=== PATIENT | male | born 1970 | race African-American/Black ===

== ENCOUNTER 2019-02-03 12:34 | Emergency (ER) | payer OTHER ==
[~2019-02-03] VITALS: Ht 182.9 cm; Wt 111.1 kg
[2019-02-03] MEDS ORDERED: IV NORMAL SALINE 1000ML BAG 1,000 ML IV ONE (13:00)
[2019-02-03 13:09] LABS: BASO % 1 % (0-3); EOS # 0.2 x10^3/uL (0.0-0.7); EOS % 4 % (0-3); HEMATOCRIT 38.4 % (39.0-53.0); HEMOGLOBIN 12.3 g/dL (13.0-17.5); LYMPH % 20 % (24-48); MEAN CORPUSCULAR HEMOGLOBIN 24 pg (25-35); MEAN CORPUSCULAR HGB CONC 32 g/dL (31-37); MEAN CORPUSCULAR VOLUME 76 fL (79-100); MONO # 0.4 x10^3/uL (0.0-1.1); MONO % 7 % (0-9); NEUT # 3.6 x10^3uL (1.8-7.7); NEUT % 69 % (31-73); PLATELET COUNT 209 x10^3/uL (140-400); RED BLOOD COUNT 5.05 x10^6/uL (4.30-5.70); RED CELL DISTRIBUTION WIDTH 17.3 % (11.5-14.5); WHITE BLOOD COUNT 5.2 x10^3/uL (4.0-11.0)
--- NOTE | 2019-02-03 13:14 | EKG ---
[facility] [address] [place] [address] Test Date: 2019-02-03 Test Time: 12:42:01 Pat Name: MARICRUZ SEVILLA Department: Room: Gender: M46 M58 Armor Crewman: : 1970 Requested By: BEATRICE RUBIO Order Number: [id number] Reading MD: Kimo Hernadez Measurements Intervals [place] Rate: 66 P: 34 DE: 184 QRS: 11 QRSD: 74 T: 72 QT: 344 QTc: 362 Interpretive Statements SINUS RHYTHM T ABNORMALITY IN HIGH LATERAL LEADS Electronically Signed On 02-26-2019 12:05:11 CDT by Kimo Hernadez
[2019-02-03] MEDS ORDERED: PROPOFOL 0 ML IV ONE ×3 (13:16→13:58)
[2019-02-03] MEDS ORDERED: LIDOCAINE 2% PF 5 ML VIAL. ONE (13:16)
[2019-02-03 13:39] LABS: CALCIUM 8.8 mg/dL (8.5-10.1); GFR 95.7; POTASSIUM 3.6 mmol/L (3.5-5.1)
--- NOTE | 2019-02-03 13:43 | RAD ---
Single view chest dated 02/03/2019: No comparison available. Clinical Indication: Chest tightness, dizziness and blurred vision. Presyncope.. Findings: Single upright portable exam of the chest was performed. Heart size and mediastinal contours are within normal limits given technique. The lungs are clear without evidence of focal consolidation. Vascular interstitium is within normal limits. Impression:: No acute radiographic abnormality. Electronically signed by: Fernandez Lopez MD (02/03/2019 1:40 PM) [facility]
[2019-02-03] MEDS ORDERED: fentaNYL PF VIAL 100 MCG/2 ML VIAL ONE (13:44)
[2019-02-03] MEDS ORDERED: PHENYLEPHRINE in 0.9% NACL PF 1 MG/10 ML SYRINGE. IV ONE (13:44)
[2019-02-03 13:47] LABS: ALBUMIN 3.4 g/dL (3.4-5.0); ALBUMIN/GLOBULIN RATIO 1.1 (1.0-1.7); MAGNESIUM 1.8 mg/dL (1.8-2.4); TOTAL BILIRUBIN 0.5 mg/dL (0.2-1.0); TOTAL PROTEIN 6.6 g/dL (6.4-8.2)
[2019-02-03 14:09] LABS: BARBITURATES NEG (NEG); BENZODIAZEPINES NEG (NEG); CANNABINOIDS NEG (NEG); COCAINE NEG (NEG); METHADONE NEG (NEG); OPIATES NEG (NEG); PHENCYCLIDINE NEG (NEG)
[2019-02-03 14:11] LABS: AMPHETAMINE/METHAMPHETAMINE NEG (NEG)
[2019-02-03 14:25] VITALS: BP 137/89
--- NOTE | 2019-02-03 15:01 | PHYS DOC ---
Past Medical History Past Medical History: High Cholesterol, Hypertension, Sciatica Additional Past Medical Histor: MS Additional Past Surgical Histo: cardiac stents Alcohol Use: Occasionally Drug Use: None Adult General Chief Complaint Chief Complaint: CHEST PAIN HPI HPI Patient is a 48 year old male with history of hypertension who presents to the ED today complaining of dizziness, patient states he went to donate blood today. He does this every quadrant. He states went back to his job, he became dizzy and lightheaded. Denies passing out. He states he did not have any sufficient meal prior to blood donation or after. He only had oatmeal. Review of Systems Review of Systems Constitutional: Denies fever or chills [] Eyes: Denies change in visual acuity, redness, or eye pain [] HENT: Denies nasal congestion or sore throat [] Respiratory: Denies cough or shortness of breath [] Cardiovascular: Reports chest tightness. No additional information not addressed in HPI [] GI: Denies abdominal pain, nausea, vomiting, bloody stools or diarrhea [] : Denies dysuria or hematuria [] Musculoskeletal: Denies back pain or joint pain [] Integument: Denies rash or skin lesions [] Neurologic: Reports dizziness. Denies headache, focal weakness or sensory changes [] All other systems were reviewed and found to be within normal limits, except as documented in this note. Current Medications Current Medications Current Medications Medications (Trade) Dose Ordered Sig/Leilani Start Time Stop Time Status Last Admin Dose Admin Fentanyl Citrate (Fentanyl 2ml Vial) 100 mcg STK-MED ONCE 02/03/19 13:44 02/03/19 13:45 DC Lidocaine HCl (Lidocaine Pf 2% Vial) 5 ml STK-MED ONCE 02/03/19 13:16 02/03/19 13:17 DC Phenylephrine HCl (PHENYLEPHRINE in 0.9% NACL PF) 1 mg STK-MED ONCE 02/03/19 13:44 02/03/19 13:45 DC Propofol 0 ml @ As Directed STK-MED ONCE 02/03/19 13:58 02/03/19 13:59 DC Sodium Chloride 1,000 ml @ 1,000 mls/hr 1X ONCE 02/03/19 13:00 02/03/19 13:59 DC 02/03/19 13:00 1,000 MLS/HR Allergies Allergies Allergies Coded Allergies Type Severity Reaction Last Updated Verified No Known Drug Allergies 02/03/19 No Physical Exam Physical Exam Constitutional: Well developed, well nourished, no acute distress, non-toxic appearance. [] HENT: Normocephalic, atraumatic, bilateral external ears normal, oropharynx moist, no oral exudates, nose normal. [] Eyes: PERRLA, EOMI, conjunctiva normal, no discharge. [] Neck: Normal range of motion, no tenderness, supple, no stridor. [] Cardiovascular:Heart rate regular rhythm, no murmur [] Lungs & Thorax: Bilateral breath sounds clear to auscultation [] Abdomen: Bowel sounds normal, soft, no tenderness, no masses, no pulsatile masses. [] Skin: Warm, dry, no erythema, no rash. [] Back: No tenderness, no CVA tenderness. [] Extremities: No tenderness, no cyanosis, no clubbing, ROM intact, no edema. [] Neurologic: Alert and oriented X 3, normal motor function, normal sensory function, no focal deficits noted. [] Psychologic: Affect normal, judgement normal, mood normal. [] Current Patient Data Vital Signs Vital Signs Date Time Temp Pulse Resp B/P (MAP) Pulse Ox O2 Delivery O2 Flow Rate FiO2 02/03/19 12:35 98.9 68 18 135/73 (93) 96 Room Air 98.9 Lab Values Laboratory Tests Test 02/03/19 12:50 02/03/19 13:44 White Blood Count 5.2 x10^3/uL (4.0-11.0) Red Blood Count 5.05 x10^6/uL (4.30-5.70) Hemoglobin 12.3 g/dL (13.0-17.5) L Hematocrit 38.4 % (39.0-53.0) L Mean Corpuscular Volume 76 fL (79-100) L Mean Corpuscular Hemoglobin 24 pg (25-35) L Mean Corpuscular Hemoglobin Concent 32 g/dL (31-37) Red Cell Distribution Width 17.3 % (11.5-14.5) H Platelet Count 209 x10^3/uL (140-400) Neutrophils (%) (Auto) 69 % (31-73) Lymphocytes (%) (Auto) 20 % (24-48) L Monocytes (%) (Auto) 7 % (0-9) Eosinophils (%) (Auto) 4 % (0-3) H Basophils (%) (Auto) 1 % (0-3) Neutrophils # (Auto) 3.6 x10^3uL (1.8-7.7) Lymphocytes # (Auto) 1.0 x10^3/uL (1.0-4.8) Monocytes # (Auto) 0.4 x10^3/uL (0.0-1.1) Eosinophils # (Auto) 0.2 x10^3/uL (0.0-0.7) Basophils # (Auto) 0.0 x10^3/uL (0.0-0.2) Prothrombin Time 13.0 SEC (11.7-14.0) Prothrombin Time INR 1.0 (0.8-1.1) Sodium Level 137 mmol/L (136-145) Potassium Level 3.6 mmol/L (3.5-5.1) Chloride Level 102 mmol/L (98-107) Carbon Dioxide Level 27 mmol/L (21-32) Anion Gap 8 (6-14) Blood Urea Nitrogen 9 mg/dL (8-26) Creatinine 1.0 mg/dL (0.7-1.3) Estimated GFR (Cockcroft-Gault) 95.7 BUN/Creatinine Ratio 9 (6-20) Glucose Level 168 mg/dL (70-99) H Calcium Level 8.8 mg/dL (8.5-10.1) Magnesium Level 1.8 mg/dL (1.8-2.4) Total Bilirubin 0.5 mg/dL (0.2-1.0) Aspartate Amino Transferase (AST) 22 U/L (15-37) Alanine Aminotransferase (ALT) 28 U/L (16-63) Alkaline Phosphatase 61 U/L (46-116) Creatine Kinase 141 U/L (39-308) Creatine Kinase MB (Mass) 0.8 ng/mL (0.0-3.6) Creatine Kinase MB Relative Index 0.6 % (0-4) Troponin I Quantitative < 0.017 ng/mL (0.000-0.055) CD-Evu-M-Type Natriuretic Peptide 5 pg/mL (0-124) Total Protein 6.6 g/dL (6.4-8.2) Albumin 3.4 g/dL (3.4-5.0) Albumin/Globulin Ratio 1.1 (1.0-1.7) Lipase 71 U/L (73-393) L Thyroid Stimulating Hormone (TSH) 0.929 uIU/mL (0.358-3.74) Urine Opiates Screen Neg (NEG) Urine Methadone Screen Neg (NEG) Urine Barbiturates Neg (NEG) Urine Phencyclidine Screen Neg (NEG) Urine Amphetamine/Methamphetamine Neg (NEG) Urine Benzodiazepines Screen Neg (NEG) Urine Cocaine Screen Neg (NEG) Urine Cannabinoids Screen Neg (NEG) Urine Ethyl Alcohol Neg (NEG) Laboratory Tests 02/03/19 12:50 Laboratory Tests 02/03/19 12:50 EKG EKG 12:[address] Pérez sinus rhythm HR 66 no STEMI[] Radiology/Procedures Radiology/Procedures []PROCEDURE: PORTABLE CHEST 1V Single view chest dated 02/03/2019: No comparison available. Clinical Indication: Chest tightness, dizziness and blurred vision. Presyncope.. Findings: Single upright portable exam of the chest was performed. Heart size and mediastinal contours are within normal limits given technique. The lungs are clear without evidence of focal consolidation. Vascular interstitium is within normal limits. Impression:: No acute radiographic abnormality. Electronically signed by: Fernandez Lopez MD (02/03/2019 1:40 PM) [facility] DICTATED and SIGNED BY: FERNANDEZ LOPEZ MD DATE: 02/03/19 1340 Course & Med Decision Making Course & Med Decision Making Pertinent Labs and Imaging studies reviewed. (See chart for details) This is a 48-year-old male patient who presents to the ED today from a blood donation center, patient donated blood this morning, went back to the office, became dizzy and lightheaded and had chest tightness. On arrival to the ED temperature was 98.9, heart rate 68 O2 sats 96% on room air, respiration 18 blood pressure 135/73. EKG was negative, chest x-ray is negative, troponin is normal, hemoglobin 12.3 hematocrit 38.4. Results given to patient. Also given 1 L of fluid. Feeling better. Up ambulating in no distress. Discharged to home. Advised not to give blood until his hemoglobin level returns to normal. Recommended high protein diet/high iron diet. He states is already on iron tablets. Dragon Disclaimer Aisha Disclaimer This electronic medical record was generated, in whole or in part, using a voice recognition dictation system. Departure Departure Impression: Primary Impression: Light-headedness Additional Impression: Anemia Disposition: 01 HOME, SELF-CARE Condition: STABLE Referrals: UNKNOWN PCP NAME (PCP) follow up with your doctor in 1 week Patient Instructions: Anemia, Nonspecific-Brief Additional Instructions: You were evaluated in the emergency room for symptoms related with blood donation. Please increase your iron dietary intake. Continue taking your iron tablets. Follow-up with your doctor in the next 1-2 weeks. Come back to the ED at any point symptoms worsen. Problem Qualifiers Additional Impression: Anemia Anemia type: unspecified type Qualified Codes: D64.9 - Anemia, unspecified BEATRICE RUBIO APRN February 03, 2019 15:01
== END 2019-02-03 15:15 | disposition home or self-care (01) ==
LOC: ER 12:34
DX: R42 Dizziness and giddiness (principal); D64.9 Anemia, unspecified; R07.89 Other chest pain; I10 Essential (primary) hypertension; E78.00 Pure hypercholesterolemia, unspecified; Z95.5 Presence of coronary angioplasty implant and graft
CPT/HCPCS: 36415; 71045; 80053; 80307; 82553; 83690; 83735; 83880; 84443; 84484; 85025; 85610; 93005; 96360; 99285; J7030; J2001; J2370; J2704; J3010

== ENCOUNTER 2019-08-11 22:26 | Emergency (ER) | payer OTHER ==
[~2019-08-11] VITALS: Ht 182.9 cm; Wt 111.1 kg
[2019-08-11 22:50] VITALS: BP 136/84
[2019-08-12] MEDS ORDERED: HYDR-2761 PO (00:01)
--- NOTE | 2019-08-12 00:02 | PHYS DOC ---
Past Medical History Past Medical History: CAD, High Cholesterol, Hypertension, Sciatica Additional Past Medical Histor: MS (WINIFRED BELL APRN) Past Surgical History: Angioplasty Additional Past Surgical Histo: cardiac stents (WINIFRED BELL APRN) Alcohol Use: None Drug Use: None (WINIFRED BELL APRN) Attending Signature I have participated in the care of this patient and I have reviewed and agree with all pertinent clinical information above including history, exam, and recommendations. (NANO COLEY MD) Adult General Chief Complaint Chief Complaint: ANKLE PROBLEM HPI HPI Patient is a 49 year old AA male who presents to the emergency department with complaints of lateral right ankle pain after twisting his ankle while going up some steps at home today. Patient states injury happened at approximately 8 PM. He currently rates his pain a 1 out of 10 on pain scale, he states that the pain increases with weightbearing and movement. Patient states that he heard an audible pop when the injury occurred and since then has felt something clicking within his ankle. Patient denies any head, neck, or back pain after the fall. All other ROS is neg unless otherwise noted in HPI. (WINIFRED BELL APRN) Review of Systems Review of Systems See Above (WINIFRED BELL APRN) Allergies Allergies Allergies Coded Allergies Type Severity Reaction Last Updated Verified No Known Drug Allergies 02/03/19 No (NANO COLEY MD) Physical Exam Physical Exam See Above Constitutional: Well developed, well nourished, no acute distress, non-toxic appearance. [] HENT: Normocephalic, atraumatic, bilateral external ears normal, nose normal. [] Eyes: PERRLA, EOMI, conjunctiva normal, no discharge. [] Neck: Normal range of motion, no stridor. [] Cardiovascular:Heart rate regular rhythm Lungs & Thorax: Respirations even and unlabored, no retractions, no respiratory distress Skin: Warm, dry, no erythema, no rash. [] Back: No tenderness Extremities: Lateral left ankle tenderness to palpation with 2+ edema, no ob vious deformity, no crepitus, no cyanosis, ROM intact Neurologic: Alert and oriented X 3, no focal deficits noted. [] Psychologic: Affect normal, judgement normal, mood normal. [] (WINIFRED BELL APRN) Current Patient Data Vital Signs Vital Signs Date Time Temp Pulse Resp B/P (MAP) Pulse Ox O2 Delivery O2 Flow Rate FiO2 08/11/19 22:50 97.9 99 20 136/84 (101) 97 Room Air 97.9 (NANO COLEY MD) EKG EKG [] (WINIFRED BELL APRN) Radiology/Procedures Radiology/Procedures PROCEDURE: ANKLE RIGHT 3V Indication: Right ankle pain and swelling TECHNIQUE:w 3 views of the right ankle COMPARISON: None Findings/ impression: Oblique nondisplaced fracture is seen through the distal fibula with extension to the ankle mortise. Ankle mortise is not widened. Significant soft tissue edema is seen overlying lateral malleolus.[] (WINIFRED BELL APRN) Course & Med Decision Making Course & Med Decision Making Pertinent Labs and Imaging studies reviewed. (See chart for details) [] (WINIFRED BELL APRN) Dragon Disclaimer Dragon Disclaimer This electronic medical record was generated, in whole or in part, using a voice recognition dictation system. (WINIFRED BELL APRN) Departure Departure Impression: Primary Impression: Lateral malleolar fracture Disposition: 01 HOME, SELF-CARE Condition: STABLE Referrals: MINH MERCEDES MD Patient Instructions: Ankle Fracture, [id number] Additional Instructions: Fill prescription(s) and use as directed. Recommend application of ice, elevation, and rest of affected extremity. Wear the splint that was placed and use the crutches provided until follow up appointment with , call in the morning to schedule your follow up. Return to the ER if your symptoms worsen. Scripts Hydrocodone Bit/Acetaminophen (HYDROCODONE-APAP 5-325 ) 1 Tab Tablet 1 TAB PO PRN Q6HRS PRN for PAIN for 3 Days, #12 TAB 0 Refills Prov: WINIFRED BELL APRN 08/12/19 Splinting Splinting : Location: right ankle Hand-Made Type: orthoglass (stirrup) Pre-Proc Neuro Vasc Exam: normal Post-Proc Neuro Vasc Exam: normal, unchanged from pre-exam Progress A stirrup ankle splint using 3 inch Ortho-Glass and heavy padding to the ankle was placed by myself and [facility] Barbara. A splint was secured to the extremity using 3- 3 inch yanira wraps and 1- 4 inch yanira wrap. The patient was also provided with crutches and crutch gait instructions at this time. (WINIFRED BELL APRN) Problem Qualifiers Primary Impression: Lateral malleolar fracture Encounter type: initial encounter Fracture type: closed Fracture alignment: displaced Laterality: right Qualified Codes: S82.61XA - Disp laced fracture of lateral malleolus of right fibula, initial encounter for closed fracture WINIFRED BELL APRN Aug 12, 2019 00:01 NANO COLEY MD Aug 12, 2019 18:14
--- NOTE | 2019-08-12 00:16 | RAD ---
Indication: Right ankle pain and swelling TECHNIQUE:w 3 views of the right ankle COMPARISON: None Findings/ impression: Oblique nondisplaced fracture is seen through the distal fibula with extension to the ankle mortise. Ankle mortise is not widened. Significant soft tissue edema is seen overlying lateral malleolus. Electronically signed by: Serjio Noe DO (08/12/2019 12:13 AM) [facility]
== END 2019-08-12 00:14 | disposition home or self-care (01) ==
LOC: ER 22:26
DX: S82.61XA Displaced fracture of lateral malleolus of right fibula, initial encounter for closed fracture (principal); E78.00 Pure hypercholesterolemia, unspecified; I10 Essential (primary) hypertension; I25.10 Atherosclerotic heart disease of native coronary artery without angina pectoris; Z95.5 Presence of coronary angioplasty implant and graft; X50.9XXA Other and unspecified overexertion or strenuous movements or postures, initial encounter; Y93.89 Activity, other specified; Y92.89 Other specified places as the place of occurrence of the external cause; Y99.9 Unspecified external cause status
CPT/HCPCS: 29515; 73610; 99284-25

== ENCOUNTER 2020-11-01 14:01 | Emergency (ER) | payer OTHER ==
[~2020-11-01] VITALS: Ht 180.3 cm; Wt 90.0 kg
[~2020-11-01 14:01] MED LIST: HYDR-2761 PO
[2020-11-01 14:35] VITALS: BP 152/84
[2020-11-01] MEDS ORDERED: ORPHENADRINE CITRATE 60 MG/2 ML VIAL. IM ONE (15:00)
[2020-11-01] MEDS ORDERED: CYCL10TA2 PO (15:31)
--- NOTE | 2020-11-01 15:31 | PHYS DOC ---
Past Medical History Past Medical History: Hypertension, Sciatica Past Surgical History: Other Smoking Status: Never Smoker Alcohol Use: None General Adult EDM: Chief Complaint: LOWER EXT PAIN HPI: HPI: Patient is a 50 year old male with a history of low back pain presented to ER due to muscle spasm in his back and buttock area. Patient has low back pain for a while, he was evaluated by his family physician, had MRI done, show some disc problem, patient is scheduled to see a pain doctor on the of this month for an epidural shot. He is currently on Neurontin for pain. Patient said for the last few day he had muscle spasm in his low back and buttock area. Patient called his doctor to see if they can give him some muscle relaxer but they told to come to ER here. Patient denies any bowel or bladder incontinence. Patient denies any abdominal pain, no nausea vomiting. Patient denies any weakness or numbness in his lower extremity. Review of Systems: Review of Systems: Constitutional: Denies fever or chills. [] Eyes: Denies change in visual acuity. [] HENT: Denies nasal congestion or sore throat. [] Respiratory: Denies cough or shortness of breath. [] Cardiovascular: Denies chest pain or edema. [] GI: Denies abdominal pain, nausea, vomiting, bloody stools or diarrhea. [] : Denies dysuria. [] Musculoskeletal: Denies back pain or joint pain. Positive for low back spasm and buttock muscle spasm Integument: Denies rash. [] Neurologic: Denies headache, focal weakness or sensory changes. [] Endocrine: Denies polyuria or polydipsia. [] Lymphatic: Denies swollen glands. [] Psychiatric: Denies depression or anxiety. [] Heart Score: Risk Factors: Risk Factors: DM, Current or recent (<one month) smoker, HTN, HLP, family history of CAD, obesity. Risk Scores: Score 0 - 3: 2.5% MACE over next 6 weeks - Discharge Home Score 4 - 6: 20.3% MACE over next 6 weeks - Admit for Clinical Observation Score 7 - 10: 72.7% MACE over next 6 weeks - Early Invasive Strategies Current Medications: Current Medications Medications (Trade) Dose Ordered Sig/Leilani Start Time Stop Time Status Last Admin Dose Admin Orphenadrine Citrate (Norflex) 60 mg 1X ONCE 11/01/20 15:00 11/01/20 15:13 DC Allergies: Allergies: Allergies Coded Allergies Type Severity Reaction Last Updated Verified No Known Drug Allergies 11/01/20 No Physical Exam: PE: Constitutional: Well developed, well nourished, no acute distress, non-toxic appearance. [] HENT: Normocephalic, atraumatic, bilateral external ears normal, oropharynx moist, no oral exudates, nose normal. [] Eyes: PERRLA, EOMI, conjunctiva normal, no discharge. [] Neck: Normal range of motion, no tenderness, supple, no stridor. [] Cardiovascular:Heart rate regular rhythm, no murmur [] Lungs & Thorax: Bilateral breath sounds clear to auscultation [] Abdomen: Bowel sounds normal, soft, no tenderness, no masses, no pulsatile masses. [] Skin: Warm, dry, no erythema, no rash. [] Back: No tenderness, no CVA tenderness. [] Extremities: No tenderness, no cyanosis, no clubbing, ROM intact, no edema. [] Neurologic: Alert and oriented X 3, normal motor function, normal sensory function, no focal deficits noted. Patient had good bilateral patellar reflexes Psychologic: Affect normal, judgement normal, mood normal. [] Current Patient Data: Vital Signs: Vital Signs Date Time Temp Pulse Resp B/P (MAP) Pulse Ox O2 Delivery O2 Flow Rate FiO2 11/01/20 14:35 98.2 74 18 152/84 (106) 98 Room Air 98.2 EKG: EKG: [] Radiology/Procedures: Radiology/Procedures: [] Course & Med Decision Making: Course & Med Decision Making Pertinent Labs and Imaging studies reviewed. (See chart for details) [] Dragon Disclaimer: Psykosoft Disclaimer: This electronic medical record was generated, in whole or in part, using a voice recognition dictation system. Departure Departure Impression: Primary Impression: Sciatica Additional Impression: Muscle spasm of back Disposition: 01 DC HOME SELF CARE/HOMELESS Condition: STABLE Referrals: ORQUIDEA ELLISON MD (PCP) Follow up with your doctor as scheduled Patient Instructions: Sciatica Additional Instructions: Thank you for visiting our Emergency Department. We appreciate you trusting us with your care. If any additional problems come up don't hesitate to return to visit us. Please follow up with your primary care provider so they can plan additional care if needed and know about the problem that you had. If symptoms worsen come back to the Emergency Department. Any concerning symptoms that start such as chest pain, shortness of air, weakness or numbness on one side of the body, running high fevers or any other concerning symptoms return to the ER. Scripts Cyclobenzaprine Hcl (CYCLOBENZAPRINE HCL) 10 Mg Tablet 1 TAB PO TID PRN for MUSCLE SPASMS, #21 TAB Prov: JERAD BRITO DO 11/01/20 JERAD BRITO DO Nov 01, 2020 15:31
== END 2020-11-01 16:00 | disposition home or self-care (01) ==
LOC: ER 14:01 → MERGE 14:01 → ER 16:00
DX: M54.40 Lumbago with sciatica, unspecified side (principal); M62.838 Other muscle spasm; I10 Essential (primary) hypertension
CPT/HCPCS: 96372; 99283; J2360